=== PATIENT | male | born 1985 | race Two or more races ===

== ENCOUNTER 2020-04-09 18:03 | Emergency (ER) | payer OTHER ==
[2020-04-09 18:14] VITALS: BP 132/79
[2020-04-09] MEDS ORDERED: NEOMYCIN/POLYMYX/HC OTIC DROPS LEFTEAR STA (18:44)
--- NOTE | 2020-04-09 18:45 | ED Physician Documentation ---
PD HPI URI - Stated complaint Stated Complaint: L EAR PAIN - Chief complaint Chief Complaint: Heent - History obtained from History obtained from: Patient, Family - History of Present Illness Timing - onset: Today (He had severe left ear pain and drainage today with muffled hearing. No fevers or other URI symptoms.) Review of Systems Constitutional: denies: Fever, Chills Nose: denies: Rhinorrhea / runny nose, Congestion Throat: denies: Dental pain / toothache, Sore throat PD PAST MEDICAL HISTORY - Past Medical History Past Medical History: No - Past Surgical History Past Surgical History: No - Present Medications Home Medications: Ambulatory Orders Medication Instructions Recorded Confirmed Hydrocodone/Acetaminophen 1 - 2 tab PO Q6H PRN #7 tablet 04/09/20 [Hydrocodone-Acetamin 5-325 mg] Neomycin/Polymyx/Hc Otic Drops 4 drops OT TID #1 bottle 04/09/20 [Cortisporin Ear Susp] - Allergies Allergies/Adverse Reactions: Allergies Allergy/AdvReac Type Severity Reaction Status Date / Time No Known Drug Allergies Allergy Verified 04/09/20 18:14 - Social History Does the pt smoke?: No Smoking Status: Never smoker PD ED PE NORMAL - Vitals Vital signs reviewed: Yes - General General: Alert and oriented X 3, No acute distress - HEENT HEENT: Other (He has nonocclusive left otitis externa) - Neck Neck: Supple, no meningeal sign, No bony TTP - Neuro Neuro: Alert and oriented X 3, Normal speech Results - Vitals Vitals: Vital Signs - 24 hr 04/09/20 18:10 Temperature 36.7 C Heart Rate 64 Respiratory 14 Rate Blood Pressure 132/79 H O2 Saturation 100 Oxygen O2 Source Room air Departure - Departure Disposition: 01 Home, Self Care Clinical Impression: Left otitis externa Qualifiers: Otitis externa type: unspecified type Chronicity: acute Qualified Code(s): H60.502 - Unspecified acute noninfective otitis externa, left ear Condition: Good Record reviewed to determine appropriate education?: Yes Instructions: ED Otitis Externa Prescriptions: Neomycin/Polymyx/Hc Otic Drops [Cortisporin Ear Susp] 4 drops OT TID #1 bottle Hydrocodone/Acetaminophen [Hydrocodone-Acetamin 5-325 mg] 1 - 2 tab PO Q6H PRN #7 tablet PRN Reason: Pain Print Language: Turkmen Comments: Follow-up with your physician on return home.
== END 2020-04-09 18:52 | disposition home or self-care (01) ==
LOC: ED 18:03
DX: H60.502 Unspecified acute noninfective otitis externa, left ear (principal)
CPT/HCPCS: 99282; 99283; A9270